=== PATIENT | male | born 2000 | race Caucasian/White ===

== ENCOUNTER 2022-08-18 12:55 | Inpatient (IN) | payer BC, OTHER ==
[2022-08-18 14:32] LABS: #Eosinphils 0.4 thou/uL (0.0-0.7); #Lymphocytes 1.5 thou/uL (1.20-3.40); #Monocytes 0.7 thou/uL (0.11-0.59); %Basophils 0.5 % (0.0-1.0); %Eosinophils 4.9 % (0.0-10.0); %Lymphocytes 19.6 % (28.0-48.0); %Monocytes 9.7 % (0.0-4.0); %Neutrophils 65.4 % (31.0-61.0); Hemoglobin 14.7 g/dL (14.0-18.0); Mean Corpuscular HGB CONC 35.1 g/dL (32.0-36.0); Mean Corpuscular Hemoglobin 32.5 pg (25.0-35.0); Mean Corpuscular Volume 92.6 fl (78.0-98.0); Mean Platelet Volume 8.2 fL (7.4-10.4); Platelet Count 349 10x3/uL (130-400); RBC Distribution Width 11.6 % (11.5-14.5); Red Blood Cell (RBC) Count 4.52 mill/uL (4.00-5.20); White Blood Cell (WBC) Count 7.7 10x3/uL (4.8-10.8)
[2022-08-18] MEDS ORDERED: Cefepime 2 GM VIAL ONE (14:50)
[2022-08-18 15:04] LABS: ALT (SGPT) 13 U/L (8-55); AST (SGOT) 24 U/L (10-45); Albumin 4.7 g/dL (3.5-5.0); Alkaline Phosphatase 79 U/L (50-130); Anion Gap 13 mmol/L (10-20); BUN (Urea Nitrogen) 13 mg/dL (8.4-21.0); Bilirubin, Total 0.4 mg/dL (0.2-1.2); Calc. Creatinine Clearance 0 mL/min (70-130); Calcium 9.9 mg/dL (7.8-10.44); Carbon Dioxide 26 mmol/L (22-29); Chloride 101 mmol/L (98-107); Estimated GFR 103; Globulin 3.2 g/dL (2.4-3.5); Glucose 66 mg/dL (70-105); Potassium 4.6 mmol/L (3.5-5.1); Protein, Total 7.9 g/dL (6.0-8.3); Sodium 135 mmol/L (136-145)
[2022-08-18] MEDS ORDERED: Vancomycin 1 GM/200 ML (FROZEN) BAG ONE (15:06)
[2022-08-18] MEDS ORDERED: Ondansetron PF 4 MG/2 ML Vial IVP PRN (16:04)
[2022-08-18] MEDS ORDERED: Acetaminophen 325 MG TAB PO PRN (16:04)
[2022-08-18] MEDS ORDERED: HYDROcodone/Acetaminophen 10/325 mg Tablet PO PRN (16:04)
[2022-08-18] MEDS ORDERED: diphenhydrAMINE 50 MG/ML VIAL ONE (16:06)
[2022-08-18 17:53] VITALS: BMI 22.0
[2022-08-18] MEDS ORDERED: diphenhydrAMINE 50 MG/ML VIAL IVP PRN (18:33)
[2022-08-18] MEDS ORDERED: Vancomycin HCl 750 MG in Sodium Chloride 0.9% 250 ML 250 ML IVPB SCH (21:00)
[2022-08-18] MEDS: Vancomycin HCl 750 MG in Sodium Chloride 0.9% 250 ML 250 ML IVPB SCH (23:22)
[2022-08-19] MEDS: Cefepime 2 GM in Sodium Chloride 0.9% 100 ML IVPB SCH ×2 (03:06→13:59)
[2022-08-19 07:56] LABS: Anion Gap 13 mmol/L (10-20); BUN (Urea Nitrogen) 13 mg/dL (8.4-21.0); Calc. Creatinine Clearance 96 mL/min (70-130); Calcium 9.9 mg/dL (7.8-10.44); Carbon Dioxide 22 mmol/L (22-29); Chloride 104 mmol/L (98-107); Estimated GFR 94; Glucose 86 mg/dL (70-105); Potassium 4.4 mmol/L (3.5-5.1); Sodium 135 mmol/L (136-145)
[2022-08-19 08:38] LABS: #Eosinphils 0.4 thou/uL (0.0-0.7); #Monocytes 0.8 thou/uL (0.11-0.59); #Neutrophils 4.5 thou/uL (1.40-6.50); %Basophils 0.5 % (0.0-1.0); %Eosinophils 5.3 % (0.0-10.0); %Monocytes 10.4 % (0.0-4.0); %Neutrophils 57.8 % (31.0-61.0); Hemoglobin 15.1 g/dL (14.0-18.0); Mean Corpuscular HGB CONC 33.8 g/dL (32.0-36.0); Mean Corpuscular Hemoglobin 31.3 pg (25.0-35.0); Mean Corpuscular Volume 92.5 fl (78.0-98.0); Mean Platelet Volume 8.2 fL (7.4-10.4); Platelet Count 348 10x3/uL (130-400); RBC Distribution Width 11.8 % (11.5-14.5); Red Blood Cell (RBC) Count 4.82 mill/uL (4.00-5.20); White Blood Cell (WBC) Count 7.8 10x3/uL (4.8-10.8)
[2022-08-19] MEDS: Vancomycin HCl 750 MG in Sodium Chloride 0.9% 250 ML 250 ML IVPB SCH (09:14)
[2022-08-19 15:45] LABS: Vancomycin, Trough 9.7 ug/mL
[2022-08-19] MEDS: Vancomycin 1 GM in Premix Bag 1 BAG IVPB SCH (17:04)
[2022-08-20] MEDS: Vancomycin 1 GM in Premix Bag 1 BAG IVPB SCH ×2 (00:11→09:05)
[2022-08-20] MEDS: Cefepime 2 GM in Sodium Chloride 0.9% 100 ML IVPB SCH ×2 (03:11→15:00)
[2022-08-20 15:34] LABS: Vancomycin, Trough 25.5 ug/mL
[2022-08-21] MEDS: Vancomycin HCl 750 MG in Sodium Chloride 0.9% 250 ML 250 ML IVPB SCH ×2 (00:06→08:46)
[2022-08-21] MEDS: Cefepime 2 GM in Sodium Chloride 0.9% 100 ML IVPB SCH (03:00)
[2022-08-21 07:01] LABS: #Eosinphils 0.4 thou/uL (0.0-0.7); #Lymphocytes 2.4 thou/uL (1.20-3.40); #Monocytes 0.9 thou/uL (0.11-0.59); #Neutrophils 5.2 thou/uL (1.40-6.50); %Basophils 0.2 % (0.0-1.0); %Eosinophils 4.1 % (0.0-10.0); %Lymphocytes 27.4 % (28.0-48.0); %Monocytes 9.8 % (0.0-4.0); %Neutrophils 58.5 % (31.0-61.0); Mean Corpuscular HGB CONC 36.3 g/dL (32.0-36.0); Mean Corpuscular Hemoglobin 33.3 pg (25.0-35.0); Mean Corpuscular Volume 91.7 fl (78.0-98.0); Platelet Count 338 10x3/uL (130-400); RBC Distribution Width 11.5 % (11.5-14.5); Red Blood Cell (RBC) Count 4.49 mill/uL (4.00-5.20); White Blood Cell (WBC) Count 8.9 10x3/uL (4.8-10.8)
[2022-08-21 08:56] VITALS: BP 113/69; TEMP 97.7
== END 2022-08-21 11:59 | disposition home or self-care (01) | DRG 605 ==
LOC: ERS 12:55 → T4-B 17:06
PROVIDERS: ADMIT Internal Medicine; ATTEND Internal Medicine
DX: S91.331A Puncture wound without foreign body, right foot, initial encounter (principal); L03.115 Cellulitis of right lower limb; W22.8XXA Striking against or struck by other objects, initial encounter
CPT/HCPCS: 36415; 80048; 80053; 80202; 83605; 85025; 85652; 86140; 87040; J0692; J0744; J1200; J1650; J3370; J3370-JW; J3490; J7050